=== PATIENT | male | born 1980 | race Caucasian/White ===

== ENCOUNTER 2016-09-02 14:42 | Emergency (ER) | payer OTHER ==
[2016-09-02 16:29] LABS: HEMOGLOBIN 16.9 gm/dl (14.0-17.5); RED BLOOD COUNT 5.01 M/UL (4.20-5.50)
[2016-09-02 16:33] LABS: BUN/CREATININE RATIO 8 (0-10)
== END 2016-09-03 03:10 | disposition short-term general hospital (02) ==
LOC: ER1 14:42
PROVIDERS: Family Medicine
DX: F10.20 Alcohol dependence, uncomplicated (principal)
CPT/HCPCS: 36415; 71010; 80053; 80307; 81001; 82550; 82553; 83874; 84484; 85025; 85610; 85730; 93005; 96372; 99285; G0480; J2405